=== PATIENT | female | born 1955 | race Caucasian/White ===

== ENCOUNTER 2016-11-25 09:43 | Inpatient (IN) | payer BC ==
[2016-11-25] VITALS (8 sets, daily range): BP systolic 124–151; BP diastolic 58–76
[~2016-11-25] VITALS: Ht 167.6 cm; Wt 58.7 kg
--- NOTE | 2016-11-25 06:54 | HP ---
ADMIT DATE: 11/25/2016 DATE OF OPERATION: 11/25/2016. DIAGNOSIS: Recurrent Symptomatic right carotid stenosis. 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 An ultrasound showed about 70% recurrent right carotid stenosis, less than 50% on the left side. She has had a right carotid endarterectomy by Dr. Almazan'____ eversion technique in 2007. An MRI also confirmed the stenosis at the bifurcation area. PAST MEDICAL HISTORY: Medications: She still is on aspirin 81 mg a day and nifedipine. ILLNESSES: Hyperlipidemia and hypertension only. PAST SURGICAL HISTORY: The only prior operation was her carotid surgery in [address] Almazan. SOCIAL HISTORY: She does smoke. ALLERGIES: CODEINE AND DARVOCET. REVIEW OF SYSTEMS: Negative for diabetes, claudication, and coronary artery disease. PHYSICAL EXAMINATION: GENERAL: A pleasant female in no acute distress. NECK: A well-healed right neck scar, 2+ carotid pulses with a right carotid bruit. CARDIOVASCULAR: With 2+ radial pulses. Heart rate is regular. LUNGS: Slightly diminished breath sounds. EXTREMITIES: 2+ popliteal pulses. NEUROLOGIC: She is neurologically intact. IMPRESSION: Recurrent right carotid stenosis. PLAN: Redo right carotid endarterectomy under cervical block anesthetic. The nature of that procedure and the risks of bleeding, stroke, nerve injury, recurrent disease, and infection were explained and she is agreeable to proceed. DEMETRIS MENDEZ MD DR: KYLE/rufino JOB#: [id number] / [id number]
[~2016-11-25 09:43] MED LIST: ASPI-482 PO; BUDE10.2 IH; CEFAZOLIN 2GM PREMIX 50 ML IV PRN; CEFAZOLIN SODIUM 1 GM in IV NORMAL SALINE 500ML BAG 500 ML IRR ONE; CYAN10005 PO; EPHEDRINE PF IN SALINE 50 MG/5 ML DISP.SYRIN. IV ONE; FENTANYL PF 100 MCG/2 ML VIAL. IV PRN; FENTANYL PF 100 MCG/2 ML VIAL. ONE; HEPARIN SODIUM 5,000 UNIT in IV RINGERS,LACTATED 500ML 500 ML IRR ONE; IV RINGERS,LACTATED 1000ML 1,000 ML IV SCH; LIDOCAINE 1% 1 ML SYRINGE. ID PRN; LIDOCAINE 1% PF 30 ML VIAL. ONE; LIDOCAINE 2% 100 MG/5 ML SYRINGE. ONE; MIDAZOLAM HCL/PF 2 MG/2 ML VIAL. ONE; NICARDIPINE HCL 25 MG/10 ML VIAL. IV ONE; NIFE60TA16 PO; ONDANSETRON PF 4 MG/2 ML VIAL. IV PRN; PHENYLEPHRINE 10 MG/ML VIAL. ONE; PHENYLEPHRINE in 0.9% NACL PF 1 MG/10 ML DISP.SYRIN. IV ONE; PROCHLORPERAZINE 10 MG/2 ML VIAL. IV PRN; PROPOFOL 40 ML IV ONE; PROTAMINE 50 MG/5 ML VIAL. IV ONE; SURGICEL FIBRILLAR 1X2 EACH. ONE; VITA0.4T17 PO
[2016-11-25 10:37] LABS: BASO # 0.1 x10^3/uL (0.0-0.2); BASO % 1 % (0-3); EOS % 1 % (0-3); HEMATOCRIT 48.4 % (36.0-47.0); HEMOGLOBIN 17.1 g/dL (12.0-15.5); LYMPH # 1.8 x10^3/uL (1.0-4.8); LYMPH % 18 % (24-48); MEAN CORPUSCULAR HEMOGLOBIN 35 pg (25-35); MEAN CORPUSCULAR HGB CONC 35 g/dL (31-37); MEAN CORPUSCULAR VOLUME 98 fL (79-100); MONO % 6 % (0-9); NEUT % 74 % (31-73); PLATELET COUNT 288 x10^3/uL (140-400); RED BLOOD COUNT 4.95 x10^6/uL (3.50-5.40); WHITE BLOOD COUNT 9.7 x10^3/uL (4.0-11.0)
[2016-11-25 10:41] LABS: CALCIUM 9.4 mg/dL (8.5-10.1); CREATININE 0.6 mg/dL (0.6-1.0); GFR 101.3; POTASSIUM 3.7 mmol/L (3.5-5.1)
[2016-11-25 10:47] LABS: PROTHROMBIN TIME PATIENT 12.2 SEC (11.7-14.0)
[2016-11-25] MEDS ORDERED: ROPIVacaine 0.5% PF 30 ML VIAL. ONE (10:54)
[2016-11-25] MEDS ORDERED: PROCHLORPERAZINE 10 MG/2 ML VIAL. IV PRN (11:15)
[2016-11-25] MEDS ORDERED: hydrALAZINE 20 MG/ML VIAL. IVP PRN (11:15)
[2016-11-25] MEDS ORDERED: NON FORMULARY ITEM (Budesonide/Formoterol Fumarate (Symbicort 160-4.5 Mcg Inhaler) 2 PUFF) IH PRN (11:15)
[2016-11-25] MEDS ORDERED: MORPHINE SULFATE 2 MG/ML DISP.SYRIN. IV PRN (11:15)
[2016-11-25] MEDS ORDERED: 0.9 % SODIUM CHLORIDE 10 ML DISP.SYRIN. IV PRN (11:15)
[2016-11-25] MEDS ORDERED: ONDANSETRON PF 4 MG/2 ML VIAL. IV PRN (11:15)
[2016-11-25] MEDS ORDERED: LABETALOL 20 MG/4 ML DISP.SYRIN. IVP PRN (11:15)
--- NOTE | 2016-11-25 11:20 | DISCH ---
DISCHARGE INSTRUCTIONS Condition on Discharge Condition on Discharge: Stable Activity After Discharge Activity Instructions for Disc: Resume previous activity Bathing Instructions: Shower-keep dressing dry (may shower in 2 days, keep steristrips in place) Diet after Discharge Diet after Discharge: Cardiac Wound Incision Care Wound/Incision Care: Ice to area for comfort, Change dressing (keep bandaid over drain site until not longer draining 3-4 days) Contacting the [facility] after DC Call your doctor for: Concerns you may have Follow-Up Follow up with: Dr. Easley [phone] 12/19/2016 11:10 ABBI JACOBSEN TRAFFIC COUNTER Nov 25, 2016 11:20
[2016-11-25] MEDS ORDERED: EPHEDRINE PF IN SALINE 50 MG/5 ML DISP.SYRIN. IV ONE (12:40)
[2016-11-25] MEDS ORDERED: PROTAMINE 50 MG/5 ML VIAL. IV ONE (12:50)
--- NOTE | 2016-11-25 13:17 | PDOC ---
BRIEF OPERATIVE NOTE Date: Nov 25, 2016 Pre-Op Diagnosis Recurrent right carotid artery stenosis Post-Op Diagnosis same Procedure Performed Redo right carotid artery endarterectomy with bovine pericardial patch angioplasty Surgeon Dr. Easley Supervisor Baking Abbi Jacobsen NP Anesthesia Type: Regional Blood Loss 75cc Specimens Obtained none Findings greater than 80% stenosis, shunt placed during surgery Complications stable to PACU ABBI JACOBSEN LOADER ENGINEER Nov 25, 2016 13:17
[2016-11-25] MEDS: IV RINGERS,LACTATED 1000ML 1,000 ML IV SCH (15:00)
--- NOTE | 2016-11-25 16:00 | OP ---
DATE OF SURGERY: 11/25/2016 PREOPERATIVE DIAGNOSIS: Symptomatic recurrent right carotid stenosis. POSTOPERATIVE DIAGNOSIS: Symptomatic recurrent right carotid stenosis. PROCEDURE PERFORMED: Redo right carotid endarterectomy with a bovine patch closure, shunt used. SURGEON: Rusty Mendez MD. BOOSTER ASSEMBLER: Yady Barahona. ANESTHETIC: Cervical block plus 1% lidocaine. INDICATIONS: This is a 61-year-old female who underwent a right carotid endarterectomy for symptomatic lesion in [address] Almazan. It was eversion technique. She continued to smoke, had an episode recently of recurrent right amaurosis fugax, and a carotid Doppler showed at least 70% stenosis, minimal disease, left side. FINDINGS: She had at least an 80% stenosis with very fragile, crumbly type plaque in the carotid artery. She initially tolerated crossclamping, but later needed the shunt. DESCRIPTION OF PROCEDURE: After adequate preparation and draping, lidocaine was used to infiltrate the proposed skin incision. Incision was made through the old incision extended proximally and distally a little bit. Bleeding was controlled with cautery. Subcutaneous tissue was divided with cautery. Platysma was divided with cautery. The common carotid artery was identified between the omohyoid and the sternocleidomastoid muscles just below previous dissection. It was soft, free of disease, and was encircled with umbilical tape and Rumel tourniquet. She was then given 6000 units of heparin IV, and dissection was continued cephalad. When the bifurcation was identified, the common was clamped and initially had no change in her neurological status. The external carotid was then encircled with a Vesseloop, and this was tightened and tacked down and then the internal ____ was encircled with a Vesseloop. The external carotid artery Vesseloop was tightened and tacked down. The internal clamp and then arteriotomy were made in the common extended across plaque into pretty much opened internal carotid artery. [place] dissector was used to endarterectomy of the vessels and as the endarterectomy was completed, she was not able to squeeze the left hand. A 12-Micronesian [place] shunt was prepared, placed into the common carotid artery, held in place with Rumel tourniquet, flushed and as forward bleeding was allowed to the shunt, backbleeding from the internal was placed up into the internal carotid artery, and she very quickly regained her normal neurological function after that. The Vesseloop was put around the internal a little higher, and the Rumel tourniquet was put around the common a little lower. The excision was extended, and the endpoints were looked at and were cleaned on both ends. Some loose intimal fibers were picked up with forceps. The vessel was irrigated with heparin and closed then with a bovine patch using a running circumferential HS 7-Prolene stitch. Just prior to complete closure, the shunt was clamped and removed, and both the vessels were clamped. Heparin was used to irrigate the vessel and the closure was completed. The internal clamp was released. Pressure was held across the orifice. The internal as well as external carotid artery Vesseloop was released. Common carotid clamp was released allowing flow initially to the external system. After several heartbeats, flow was allowed into the internal carotid artery. Minimal bleeding along the suture line was controlled with 4 x 4s and pressure. The patient was given 20 mg of protamine. The wound was irrigated with Ancef solution, and once hemostasis was obtained, some fibular Surgicel packed around suture lines. A 7-mm Vitaly-Hernandez drain was placed into the wound and brought through a separate stab incision, and then the incision was closed with running 2-0 Vicryl for the platysma, subcuticular 4-0 Vicryl, Mastisol, Steri-Strips, and sterile dressings were applied. The patient tolerated the procedure and left the operating room in stable condition. Neurologically intact. ESTIMATED BLOOD LOSS: About 100 mL. RUSTY MENDEZ MD DR: KYLE/rufino JOB#: [id number] / [id number]
[2016-11-25] MEDS ORDERED: ASCO100065 PO (17:03)
[2016-11-25] MEDS: ALBUTEROL SULFATE 2.5 MG/3 ML NEBU. NEB SCH ×2 (17:13→20:00)
[2016-11-25] MEDS: OXYCODONE IR 5 MG TABLET. PO PRN (19:46)
[2016-11-25] MEDS: BUDESONIDE 0.5 MG/2 ML NEBU. NEB SCH (20:00)
[2016-11-26 03:16] VITALS: BP 140/66
[2016-11-26] MEDS: OXYCODONE IR 5 MG TABLET. PO PRN ×2 (03:31→10:04)
[2016-11-26] MEDS: BUDESONIDE 0.5 MG/2 ML NEBU. NEB SCH (06:16)
[2016-11-26] MEDS: ALBUTEROL SULFATE 2.5 MG/3 ML NEBU. NEB SCH (06:16)
[2016-11-26 07:52] VITALS: BP 120/60
[2016-11-26] MEDS ORDERED: NIFEDIPINE ER 30 MG TAB.ER.24H PO SCH (09:00)
[2016-11-26] MEDS ORDERED: ASPIRIN ENTERIC COATED 81 MG TABLET.DR. PO SCH (09:00)
[2016-11-26] MEDS ORDERED: CYANOCOBALAMIN (VITAMIN B-12) 1,000 MCG TABLET. PO SCH (09:00)
[2016-11-26] MEDS ORDERED: VITAMIN B COMPLEX TABLET. PO SCH (09:00)
[2016-11-26 10:03] VITALS: BP 127/59
[2016-11-26 10:05] VITALS: BP 136/65
--- NOTE | 2016-11-26 10:43 | PDOC ---
Provider Note Provider Note AF VSS awake and alert right neck incision intact, no hematoma, ERIK removed neuro exam intact A/P POD#1 right CEA - d/c home today - follow up 2-3 weeks GAVI SUE MD Nov 26, 2016 10:43
[2016-11-26] MEDS: IV RINGERS,LACTATED 1000ML 1,000 ML IV SCH (11:00)
== END 2016-11-26 12:29 | disposition home or self-care (01) | DRG 253 ==
LOC: OPSVCIP 09:43 → 2 SOUTH 14:38
PROVIDERS: ADMIT Specialist; ATTEND Specialist
PROC: 03UH0JZ Supplement Right Common Carotid Artery with Synthetic Substitute, Open Approach (ICD-10-PCS; 2016-11-25)
PROC: 03CH0ZZ Extirpation of Matter from Right Common Carotid Artery, Open Approach (ICD-10-PCS; principal; 2016-11-25 12:00)
DX: T82.858A Stenosis of other vascular prosthetic devices, implants and grafts, initial encounter (principal); G45.3 Amaurosis fugax; E78.5 Hyperlipidemia, unspecified; F17.200 Nicotine dependence, unspecified, uncomplicated; H54.41 Blindness, right eye, normal vision left eye; I10 Essential (primary) hypertension; Z79.82 Long term (current) use of aspirin; Z88.6 Allergy status to analgesic agent; Z88.8 Allergy status to other drugs, medicaments and biological substances
CPT/HCPCS: 36415; 80048; 85027; 85610; 85730; 94250; 94640; 94760; C1769; J0690; J2250; J2370; J2704; J2795; J3010; J7040; J7120

== ENCOUNTER → 2021-02-23 | Outpatient (CLI) | payer MEDICARE, BC ==
[~2021-02-23] MED LIST changes: +ASCO100065 PO; -CEFAZOLIN 2GM PREMIX 50 ML IV PRN; -CEFAZOLIN SODIUM 1 GM in IV NORMAL SALINE 500ML BAG 500 ML IRR ONE; +CYAN-25 PO; -CYAN10005 PO; -EPHEDRINE PF IN SALINE 50 MG/5 ML DISP.SYRIN. IV ONE; -FENTANYL PF 100 MCG/2 ML VIAL. IV PRN; -FENTANYL PF 100 MCG/2 ML VIAL. ONE; -HEPARIN SODIUM 5,000 UNIT in IV RINGERS,LACTATED 500ML 500 ML IRR ONE; -IV RINGERS,LACTATED 1000ML 1,000 ML IV SCH; -LIDOCAINE 1% 1 ML SYRINGE. ID PRN; -LIDOCAINE 1% PF 30 ML VIAL. ONE; -LIDOCAINE 2% 100 MG/5 ML SYRINGE. ONE; -MIDAZOLAM HCL/PF 2 MG/2 ML VIAL. ONE; -NICARDIPINE HCL 25 MG/10 ML VIAL. IV ONE; -NIFE60TA16 PO; +NIFE60TA90 PO; -ONDANSETRON PF 4 MG/2 ML VIAL. IV PRN; -PHENYLEPHRINE 10 MG/ML VIAL. ONE; -PHENYLEPHRINE in 0.9% NACL PF 1 MG/10 ML DISP.SYRIN. IV ONE; -PROCHLORPERAZINE 10 MG/2 ML VIAL. IV PRN; -PROPOFOL 40 ML IV ONE; -PROTAMINE 50 MG/5 ML VIAL. IV ONE; -SURGICEL FIBRILLAR 1X2 EACH. ONE
--- NOTE | 2021-02-23 09:30 | KCIC ---
MRI of the cervical spine without contrast 02/23/2021 CLINICAL HISTORY: Neck pain with left arm pain and numbness for 3 months. TECHNIQUE: Unenhanced T1-weighted, T2-weighted and inversion recovery sagittal and gradient echo and T2-weighted axial images of the cervical spine were obtained. FINDINGS: Minimal lateral curvature of the cervical spine is seen convex to the left. There is straig htening of the normal cervical lordosis. Degenerative signal changes and varying loss of height are s een involving all of the disks of the cervical spine. Degenerative signal changes are seen within the marrow surrounding these discs. No area of abnormal signal intensity is seen involving the cervical spinal cord. At the C2-3 disc space there is a minimal generalized disc bulge. Degenerative changes are seen invol ving the uncovertebral and facet joints bilaterally. These findings do not result in significant cent ral spinal canal or neural foraminal stenosis. At the C3-4 disc space there is a mild generalized disc bulge. This is eccentric to the left. Degener ative changes are seen involving the uncovertebral and facet joints, left greater than right. These f indings when combined efface the anterior and posterior CSF resulting in mild central spinal canal st enosis without evidence of cord impingement. Mild to moderate left neural foraminal stenosis is seen. The right neural foramen is patent. At the C4-5 disc space there is a mild generalized disc bulge. Degenerative changes are seen involvin g the uncovertebral and facet joints bilaterally. These findings do not result in significant central spinal canal or neural foraminal stenosis. At the C5-6 disc space there is a mild generalized disc bulge. Superimposed on this disc bulge is a l eft paracentral focal disc herniation. This measures 5 mm in AP diameter. Degenerative changes are se en involving the uncovertebral and facet joints, left greater than right. These findings when combine d result in mild to moderate left-sided central spinal canal stenosis. The disc herniation mildly imp inges upon the left lateral aspect of the cervical spinal cord. Mild left neural foraminal stenosis i s seen. The right neural foramen is patent. At the C6-7 disc space there is a mild to moderate generalized disc bulge. Degenerative changes are s een involving the uncovertebral and facet joints bilaterally. These findings do not result in signifi cant central spinal canal or neural foraminal stenosis. At the C7-T1 disc space is a minimal generalized disc bulge. Degenerative changes are seen involving the facet joints bilaterally. Findings do not result in significant central spinal canal or neural fo raminal stenosis. IMPRESSION: Degenerative changes are seen throughout the cervical spine. These findings result in mil d central spinal canal stenosis at C3-4 without evidence of cord impingement. Mild to moderate left n eural foraminal stenosis is seen at C3-4. At the C5-6 disc space a left paracentral focal disc hernia tion is seen. This contributes to mild to moderate left-sided central spinal canal stenosis and mildl y impinges upon the left lateral aspect of the cervical spinal cord. Mild left neural foraminal steno sis is seen at C5-6. Electronically signed by: Clinton Torres MD (02/23/2021 9:28 AM) [id number]
== END ==
LOC: KCIC MRI 08:13
PROVIDERS: ATTEND Orthopaedic Surgery
DX: M47.23 Other spondylosis with radiculopathy, cervicothoracic region (principal); M50.122 Cervical disc disorder at C5-C6 level with radiculopathy; M48.02 Spinal stenosis, cervical region
CPT/HCPCS: 72141

== ENCOUNTER → 2021-11-15 | Outpatient (CLI) | payer MEDICARE, BC ==
[~2021-11-15] MED LIST changes: +IBUP-1060 PO
--- NOTE | 2021-11-15 15:23 | PDOC1 ---
INITIAL PAIN CONSULT DATE OF SERVICE: DOS: DATE: 11/15/21 TIME: 15:15 CHIEF COMPLAINT: Chief Complaint: Low back and left lower extremity pain HISTORY OF PRESENT ILLNESS: 66-year-old female presents with history of pain low back left lower extremity for about 1 year not the result of any specific injury or action that she is worried. 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 Patient reports worse with walking standing changing positions better with sitting or laying down lying down is better but still wakes her from sleep about once or twice at night patient reports is not effective bowel bladder control does affect ability to walk although does not use any assistive devices. Patient reports the pain is in the low back rating left lower extremity posterior gluteus posterior lateral thigh lateral anterior thigh anteromedial thigh into the lower leg to the level of the ankle at times patient reports its constant aching tight and throbbing in the back with some numbness in the leg as well but without any loss of motor function patient reports he does fatigue very easily with the left lower extremity with activity. Patient reports that she has tried ibuprofen as well as Tylenol both which do help but ibuprofen does help better patient ranges ability rating 0-10 10 being the worst is a 6 with responsibilities recreation social activity occupation 5 with self-care and 5 life support activities. Patient did have some chiropractic treatment which has been helpful to get back more mobile was not decrease the pain significantly in the leg. Patient had lumbar spine MRI scan showing degenerative changes throughout with levels of lateral recess and foraminal narrowing greatest at L3-4 and L4-5 with diffuse disc bulges and greater left far lateral endplate spurring at L3-4 with lateral recess narrowing bilaterally with high-grade left and moderate right foraminal narrowing L4-5 shows disc bulge with lateral recess narrowing greater on the right with high-grade right and left foraminal narrowing. Patient reports a loss of motor function with significant fatigability of the left lower extremity no bowel or bladder incontinence noted. PAST MEDICAL HISTORY: PMH: Hypertension, arthritis, peripheral vascular disease, hyperlipidemia, Raynaud's phenomenon PREVIOUS SURGERIES: Past Surgical Hx: Right carotid endarterectomy, left foot surgery CURRENT MEDICATIONS: Current Meds: Active Scripts Medications Dose Route/Sig Max Daily Dose Days Date Category Vitamin C (Ascorbic Acid) 1,000 Mg Tab.chew 1,000 Mg PO DAILY 11/25/16 Reported Symbicort 160-4.5 Mcg Inhaler (Budesonide/Formoterol Fumarate) 10.2 Gm Hfa.aer.ad 2 Puff IH PRN PRN 11/24/16 Reported Vitamin B-12 (Cyanocobalamin (Vitamin B-12)) 1,000 Mcg Tablet 1 Tab PO DAILY 11/24/16 Reported Super B Maxi Complex Caplet (Vitamin B Complex/Folic Acid) 0.4 Mg Tablet 0.4 Mg PO DAILY 11/24/16 Reported Aspir 81 (Aspirin) 81 Mg Tablet.dr 1 Tab PO DAILY 11/24/16 Reported Nifedipine Er (Nifedipine) 60 Mg Tab.er.24 120 Tab PO DAILY 11/24/16 Reported ALLERGIES; Allergies: Coded Allergies: acetaminophen (Verified Allergy, Intermediate, RASH,SWELLING, 11/25/16) codeine (Verified Allergy, Intermediate, RASH, VOMITING, 11/25/16) propoxyphene (Verified Allergy, Intermediate, RASH,SWELLING, 11/25/16) FAMILY HISTORY: Family Hx: No major medical problems or conditions that she is aware of. SOCIAL HISTORY: Social Hx: Patient drinks alcohol occasionally does smokes cigarettes less than 1 pack a day for the past 35 years continues to smoke, does not use any illegal illicit or recreational drugs is lives with her spouse lives locally in [facility]. Patient reports she is currently retired but takes care of her 3-year-old grandson 3 days a week. REVIEW OF SYSTEMS: ROS: Positive for those items mentioned in history of present illness, all systems are reviewed, otherwise negative ,and are complete full and well-documented on patient's chart. PHYSICAL EXAM: VS: Blood pressure is 146/78 pulse 94 respirations 16 temperature 98.2 F height is 5 feet 6 inches weight is 112 pounds. PE: PHYSICAL EXAMINATION: GENERAL: The patient is awake, alert, oriented, appropriate, very pleasant in demeanor HEENT: Shows normocephalic, atraumatic. Extraocular movements are intact and symmetrical. Oral cavity: Mucous membranes moist and pink. NECK: Shows anterior throat supple without palpable lymphadenopathy noted. Swallow reflex symmetrical. CHEST: Shows normal on inspection. Breath sounds are clear bilaterally, distant and coarse but no rales rhonchi or wheezes auscultated. HEART: Shows S1, S2 clear. No murmurs auscultated. ABDOMEN: Soft, nontender, nondistended. No palpable organomegaly is noted. BACK: Shows spine grossly in the midline. Normal-appearing cervical lordotic curvature. Cervical paraspinous muscles show symmetrical inspection, palpation some moderate tenderness diffusely bilaterally diffusely without significant radiation. Patient shows good rotation of motion of the cervical spine both laterally as well as extension flexion without significant limitation or inc reased pain reported. There is somewhat increased thoracic kyphosis, some mild flattening of the lumbar lordotic curvature. Lumbar paraspinous muscles show symmetrical on inspection, on palpation shows some moderate tenderness diffusely throughout the upper, middle and lower distribution of the paraspinous muscles bilaterally and also into the lower thoracic paraspinous musculature, firm and tender, but without specific trigger points, without radiation of pain. The patient has good rotational motion of the lumbar spine, both laterally as well as extension and flexion without significant difficulty. No tenderness over the spinous processes, sacrum or sacroiliac regions. EXTREMITIES: Lower extremities show deep tendon reflexes 2+ in the patellar and tendo calcaneus tendons. Motor exam is 5 on a scale of 5 with right dorsiflexion, extension, quadriceps and hamstring flexion and 4/5 on the left. Peripheral pulses are 1+ posterior tibial. No peripheral edema is noted bilaterally. Lower extremities are warm and dry to touch, equal in color and appearance. Straight leg raise noted to be positive on the left approximate 45 degrees, right side is negative. Gaenslen's and Oemga's maneuvers are negative bilaterally. Upper extremity show deep tendon reflexes 2+ in the bicep triceps tendons, motor exam strong with life skills trainer strength rated 5 out of 5 as is bicep tricep flexion and symmetrical. Shoulder shrug strong and intact without loss of strength on resistance bilaterally. The patient is able to stand, stand on her toes without significant difficulty or loss of balance, walks with a slight favoring gait mild favoring of the left lower extremity but not use any assistive devices canes or walker to ambulate. SKIN: Shows warm and dry, good turgor. No edema. No sores, rashes or bruising throughout. IMPRESSION: Impression: 66-year-old female with approximate 1 year history low back left lower extremity pain in a radicular fashion. MRI scan lumbar spine as noted Hypertension Arthritis COPD Plan: Options were discussed with patient occluding conservative managements physical therapies interventional techniques. Patient would like to pursue interventional techniques that she is done chiropractic treatment as well as doing stretching strengthening exercises and walking on her own daily. We discussed a lumbar epidural steroid injections description as well as anatomical models to describe the procedure. Patient has scheduling conflict today however will reschedule for approximate 1 week and we will plan on lumbar epidural steroid injection with fluoroscopic guidance at that time. In the meantime, patient continue with stretching strength exercises with walking as tolerated and oral analgesics as currently. DEANN WARD MD Nov 15, 2021 15:23
== END | disposition home or self-care (01) ==
LOC: PNCL 14:08
PROVIDERS: ATTEND Anesthesiology
DX: M54.50 Low back pain, unspecified (principal); M79.605 Pain in left leg; I10 Essential (primary) hypertension; M19.90 Unspecified osteoarthritis, unspecified site; E78.5 Hyperlipidemia, unspecified; J44.9 Chronic obstructive pulmonary disease, unspecified; F17.210 Nicotine dependence, cigarettes, uncomplicated; Z86.73 Personal history of transient ischemic attack (TIA), and cerebral infarction without residual deficits; Z79.899 Other long term (current) drug therapy; Z98.890 Other specified postprocedural states; Z79.82 Long term (current) use of aspirin; Z88.5 Allergy status to narcotic agent; Z88.8 Allergy status to other drugs, medicaments and biological substances
CPT/HCPCS: G0463

== ENCOUNTER → 2021-11-22 | Outpatient (CLI) | payer MEDICARE, BC ==
[~2021-11-22] MED LIST changes: +DEXAMETHASONE PRES.FREE 10 MG/ML VIAL. ONE; +IOHEXOL 180 MG/ML 10 ML VIAL. ONE
--- NOTE | 2021-11-22 13:15 | PDOC ---
Progress Note - Pain Clinic Date of Service: DOS: DATE: 11/22/21 TIME: 13:10 Diagnosis: Dx: Lumbar radiculopathy with lumbar degenerative disease Cervical radiculopathy cervical degenerative disease and cervical spinal stenosis History or Present Illness: HPI: 66-year-old female returns for follow-up status post initial evaluation and complaints of pain low back and the left lower extremity. Patient reports pain with walking standing changing positions better with sitting or laying down radiating from the low back into the left leg posterior gluteus lateral thigh anterior thigh medial thigh patient reports its a 5 on a scale 10 is worst least and average over the past week and is a 5 today patient reports is aching and dull in the back shooting and sharp in the leg radiating in quality patient reports is better with sitting or laying down generally not awaken her from sleep over the past week or so patient reports no bowel or bladder incontinence. Patient reports some fatigability the left leg but no overt motor loss. Physical Exam: VS: Blood pressure is 131/70 pulse 99 respirations 18 temperature is 90.2 F height is 5 feet 6 inches weight is 115 pounds. PE: PHYSICAL EXAMINATION: GENERAL: The patient is awake, alert, oriented, appropriate, very pleasant in demeanor HEENT: Shows normocephalic, atraumatic. Extraocular movements are intact and s ymmetrical. Patient wearing eyeglasses. Oral cavity: Mucous membranes moist and pink. NECK: Shows anterior throat supple without palpable lymphadenopathy noted. Swallow reflex symmetrical. CHEST: Shows normal on inspection. Breath sounds are clear bilaterally, no rales rhonchi wheezes auscultated. HEART: Shows S1, S2 clear. No murmurs auscultated. ABDOMEN: Soft, nontender, nondistended. No palpable organomegaly is noted. BACK: Shows spine grossly in the midline. Normal-appearing cervical lordotic c urvature. There is moderately increased thoracic kyphosis, some mild flattening of the lumbar lordotic curvature. Lumbar paraspinous muscles show symmetrical on inspection, on palpation shows some moderate tenderness diffusely throughout the upper, middle and lower distribution of the paraspinous muscles, without specific trigger points, without radiation of pain. The patient has good rotational motion of the lumbar spine, both laterally as well as extension and flexion without significant difficulty. EXTREMITIES: Lower extremities show deep tendon reflexes 2+ in the patellar and tendo calcaneus tendons. Motor exam is 5 on a scale of 5 with right dorsiflexion, extension, quadriceps and hamstring flexion and 4/5 on the left. Peripheral pulses are 1+ posterior tibial. No peripheral edema is noted bilaterally. Lower extremities are warm and dry to touch, equal in color and appearance. SKIN: Shows warm and dry, good turgor. No edema. No sores, rashes or bruising throughout. Procedure: Procedure: Options were discussed the patient. Patient's old chart was viewed as her current medication regimen updated current review of systems updated today as well. We will proceed with a lumbar epidural steroid injection today with fluoroscopic guidance. Risks were discussed including but not limited to: Bleeding, infection, possibility of epidural hematoma and subsequent neurological compromise, dural puncture, headaches, spinal cord and/or nerve damage, side effects of steroid medication, and poor results regarding pain control. Patient understands and wished to proceed. Patient will return to the clinic in approximately 2 weeks for follow-up, was counseled as to return appointment, activity level, and side effect to be aware of. Medication Injected: Med Injected: Procedure is lumbar epidural steroid injection under local anesthetic using sterile prep and drape at the L4-5 level using C-arm fluoroscopic guidance in both AP and lateral views medications injected is 20 mg dexamethasone +10mL preservative-free normal saline and 2 mL contrast- condition at discharge is stable patient tolerated procedure well had no complications. Condition at Discharge: Condition at Discharge: Condition at discharge stable, patient tolerated procedure well and had no complications. DEANN WARD MD Nov 22, 2021 13:15
--- NOTE | 2021-11-22 13:16 | PDOC4 ---
Procedure Note: ICD 10 Code: ICD 10 Code: M54.16 M51.36 Procedure Note: Patient was consented for lumbar epidural steroid injection with fluoroscopic guidance. Risks were discussed including but not limited to: Bleeding, infection, possibility of epidural hematoma and subsequent neurological compromise, dural puncture, headaches, spinal cord and/or nerve damage, side effects of steroid medication, and poor results regarding pain control. Patient understands and wished to proceed. Procedure is lumbar epidural steroid injection under local anesthetic using sterile prep and drape at the L4-5 level using C-arm fluoroscopic guidance in both AP and lateral views medications injected is 20 mg dexamethasone +10mL preservative-free normal saline and 2 mL contrast- condition at discharge is stable patient tolerated procedure well had no complications. DEANN WARD MD Nov 22, 2021 13:16
== END | disposition home or self-care (01) ==
LOC: PNCL 11:07
PROVIDERS: ATTEND Anesthesiology
DX: M51.16 Intervertebral disc disorders with radiculopathy, lumbar region (principal); M50.10 Cervical disc disorder with radiculopathy, unspecified cervical region; M48.02 Spinal stenosis, cervical region; I10 Essential (primary) hypertension; E78.00 Pure hypercholesterolemia, unspecified; J44.9 Chronic obstructive pulmonary disease, unspecified; Z86.73 Personal history of transient ischemic attack (TIA), and cerebral infarction without residual deficits; Z79.82 Long term (current) use of aspirin; Z79.899 Other long term (current) drug therapy; Z98.890 Other specified postprocedural states
CPT/HCPCS: 62323; J1100; Q9965